=== PATIENT | male | born 1990 | race Caucasian/White ===

== ENCOUNTER 2016-09-24 05:41 | Emergency (ER) | payer OTHER ==
[~2016-09-24] VITALS: Ht 180.3 cm; Wt 113.4 kg
[2016-09-24 05:45] VITALS: BP 160/106; PULSE 73; RESP 18; TEMP 98.2; O2SAT 98
--- NOTE | 2016-09-24 05:45 | NUR ---
Patient AAO x 4, sitting in bed, c/o "feeling weird" AND SOB. Patient states he took a [place] pill and a half last night at 8pm for back pain and the medication was . Denies N/V/D. Denies chest pain. Lung sounds clear. Skin pink and perfused. Vital signs stable. No acute distress noted. Will continue to monitor.
--- NOTE | 2016-09-24 05:45 | NUR ---
Placed in room 06 . Placed on manager monitoring, blood pressure machine and pulse oximeter. To gown for exam. Side rails up. Report given to GARO Puga.
--- NOTE | 2016-09-24 06:05 | NUR ---
ER at bedside examining patient.
[2016-09-24] MEDS ORDERED: LORazepam 1 MG TABLET PO ONE (06:15)
--- NOTE | 2016-09-24 06:15 | NUR ---
CALLED LAB TO INFORM OF BLOOD DRAW TOLD "WILL BE THERE SOON." AWARE.
--- NOTE | 2016-09-24 06:15 | NUR ---
Patient refusing urine at this time. MD informed and aware.
--- NOTE | 2016-09-24 06:40 | NUR ---
CALLED LAB TO RE-INFORM OF BLOOD DRAW NO ETA AT THIS TIME.
--- NOTE | 2016-09-24 07:05 | NUR ---
Report given to GARO Almonte. Care endorsed.
[2016-09-24 07:31] LABS: BASOPHILS % (AUTO) 0.5 % (0.0-2.0); EOSINOPHILS # (AUTO) 0.1 K/uL (0.0-0.4); EOSINOPHILS % (AUTO) 1.3 % (0.0-4.0); HEMATOCRIT 39.4 % (36-54); HEMOGLOBIN 13.6 g/dL (14.0-18.0); LYMPHOCYTES # (AUTO) 1.8 K/uL (1.0-5.5); LYMPHOCYTES % (AUTO) 25.4 % (20.5-51.5); MEAN CORPUSCULAR HEMOGLOBIN 31 pg (27-31); MEAN CORPUSCULAR HGB CONC 35 % (32-36); MEAN CORPUSCULAR VOLUME 90 fL (79.0-98.0); MONOCYTES # (AUTO) 0.6 K/uL (0.0-1.0); MONOCYTES % (AUTO) 8.8 % (1.7-9.3); NEUTROPHILS # (AUTO) 4.5 K/uL (1.8-7.7); PLATELET COUNT (AUTO) 219 K/uL (130-430); RED BLOOD CELL COUNT(AUTO) 4.38 MIL/uL (4.2-6.2); RED CELL DISTRIBUTION WIDTH 12.4 % (9.0-15.0)
--- NOTE | 2016-09-24 07:31 | NUR ---
Patient in stable condition, no distress noted.
[2016-09-24 07:40] LABS: CALCIUM 8.6 mg/dL (8.4-11.0); POTASSIUM 3.9 mmol/L (3.5-5.1)
[2016-09-24 07:45] LABS: ALBUMIN 3.9 g/dL (3.4-4.8); TOTAL BILIRUBIN 0.2 mg/dL (0.0-1.0); TOTAL PROTEIN, SERUM 7.5 g/dL (6.4-8.3)
[2016-09-24 09:46] VITALS: BP 136/87; PULSE 81; RESP 18; TEMP 98.1; O2SAT 99
--- NOTE | 2016-09-24 09:46 | NUR ---
Patient given written and verbal discharge instructions and verbalizes understanding. ER MD discussed with patient the results and treatment provided. Patient going to medical records for copies of paperwork. Patient in stable condition. ID arm band removed. Patient educated on pain management and to follow up with PMD in 2 days. Pain Scale 0/10. Opportunity for questions provided and answered.
== END 2016-09-24 09:46 | disposition home or self-care (01) ==
LOC: SED 05:41
DX: F41.1 Generalized anxiety disorder (principal)
CPT/HCPCS: 36415; 80053; 85025; 93005; 99285